=== PATIENT | female | born 1930 | race Two or more races ===

== ENCOUNTER → 2020-12-09 16:49 | Emergency (ER) | payer OTHER ==
[~2020-12-09 16:49] MED LIST: CIPR500T4 PO; DONE5TAB80 PO; IBUP800T27 PO; ISOS5TAB PO; LEVO75TA6 PO; SACC1CAP3 PO; SIMV-13 PO
== END | disposition left against medical advice (07) ==
LOC: ER 16:49
DX: R06.02 Shortness of breath (principal); Z53.21 Procedure and treatment not carried out due to patient leaving prior to being seen by health care provider